=== PATIENT | female | born 1980 | race Caucasian/White ===

== ENCOUNTER 2018-02-16 10:35 | Emergency (ER) | payer OTHER, MEDICAID ==
[2018-02-16] MEDS: IBUPROFEN 600 MG TAB PO (10:57)
== END 2018-02-16 11:40 | disposition home or self-care (01) ==
LOC: E/R 10:35
DX: S60.512A Abrasion of left hand, initial encounter (principal); S89.91XA Unspecified injury of right lower leg, initial encounter; V89.2XXA Person injured in unspecified motor-vehicle accident, traffic, initial encounter
CPT/HCPCS: 73110; 73110-LT; 73130-LT; 73562; 99284-25

== ENCOUNTER 2019-04-26 11:39 | Emergency (ER) | payer MEDICAID, OTHER ==
[2019-04-26] MEDS: IBUPROFEN 800 MG TAB PO (12:40)
== END 2019-04-26 12:32 | disposition home or self-care (01) ==
LOC: FTE 11:39
DX: S06.0X0A Concussion without loss of consciousness, initial encounter (principal); F17.210 Nicotine dependence, cigarettes, uncomplicated; R40.2412 Glasgow coma scale score 13-15, at arrival to emergency department; S49.92XA Unspecified injury of left shoulder and upper arm, initial encounter; V28.4XXA Motorcycle driver injured in noncollision transport accident in traffic accident, initial encounter
CPT/HCPCS: 99283; Z7502